=== PATIENT | male | born 1975 | race African-American/Black ===

== ENCOUNTER 2019-09-17 18:40 | Emergency (ER) | payer SELFPAY ==
--- NOTE | 2019-09-17 18:54 | ER Document Report ---
ED Medical Screen (RME) - General Chief Complaint: Altered Mental Status Stated Complaint: POSSIBLE STROKE Time Seen by Provider: 09/17/19 18:51 Mode of Arrival: Wheelchair Information source: Patient Notes: 44-year-old male presented to ED for complaint of forgetfulness unsteady on his feet and "discombobulated ". He does know who he is and where he is. He is able to tell me the date. He does have equal facial movement. He does not have any facial droop. He has no palmar drift. He has equal strength both arms both legs. He is able to answer questions appropriately. He is able to stick his tongue out open his mouth follow instructions. He is alert and oriented at this time. His states he has been forgetful all day. He states he got up and felt lightheaded and fell once earlier today. He states he does smoke about a pack and a half of cigarettes a day drinks about once a week and uses marijuana. Last time he used marijuana was this morning. After performing a Medical Screening Examination, I spoke with the patient at length in regards to leaving the hospital against medical advice. I do not believe the patient should leave but the patient is alert oriented x4, understands the risks and benefits of staying and leaving including disability and . Pt understands that he can return at any time for further care and is more than welcome to do so. Pt verbalizes this understanding. Physical Exam - Vital signs Vitals: Temp Pulse Resp BP Pulse Ox 97.9 F 79 20 148/85 H 94 09/17/19 18:45 09/17/19 18:45 09/17/19 18:45 09/17/19 18:45 09/17/19 18:45 Course - Vital Signs Vital signs: Temp Pulse Resp BP Pulse Ox 97.9 F 79 20 148/85 H 94 09/17/19 18:45 09/17/19 18:45 09/17/19 18:45 09/17/19 18:45 09/17/19 18:45
--- NOTE | 2019-09-17 19:28 | RADIOLOGY REPORT (SQ) ---
EXAM DESCRIPTION: CT HEAD WITHOUT IMAGES COMPLETED DATE/TIME: 09/17/2019 6:10 pm REASON FOR STUDY: altered mental status possible tia COMPARISON: None. TECHNIQUE: Axial images acquired through the brain without intravenous contrast. Images reviewed wi th bone, brain and subdural windows. Additional sagittal and coronal reconstructions were generated. Images stored on PACS. All CT scanners at this facility use dose modulation, iterative reconstruction, and/or weight based d osing when appropriate to reduce radiation dose to as low as reasonably achievable (ALARA). [facility]: Dose Right [facility]: CareDose [facility]: Dose Right [facility]: Teradose 4D [facility]: Smart AudioCompass RADIATION DOSE: CT Rad equipment meets quality standard of care and radiation dose reduction techniq ues were employed. CTDIvol: 53.2 mGy. DLP: 964 mGy-cm. mGy. LIMITATIONS: None. FINDINGS: VENTRICLES: Normal size and contour. CEREBRUM: No masses. No hemorrhage. No midline shift. No evidence for acute infarction. Normal gra y/white matter differentiation. No areas of low density in the white matter. CEREBELLUM: No masses. No hemorrhage. No alteration of density. No evidence for acute infarction. EXTRAAXIAL SPACES: No fluid collections. No masses. ORBITS AND GLOBE: No intra- or extraconal masses. Normal contour of globe without masses. CALVARIUM: No fracture. PARANASAL SINUSES: No fluid or mucosal thickening. SOFT TISSUES: No mass or hematoma. OTHER: No other significant finding. IMPRESSION: No acute intracranial hemorrhage, mass, or evidence of acute territorial infarct. EVIDENCE OF ACUTE STROKE: NO. COMMENT: Quality ID # [id number]: Final reports with documentation of one or more dose reduction techniques (e.g., Automated exposure control, adjustment of the mA and/or kV according to patient size, use of iterative reconstruction technique) TECHNICAL DOCUMENTATION: JOB ID: [id number] 2010 [employer]- All Rights Reserved Reading location - IP/workstation name: [email or web address]
[2019-09-17 20:10] LABS: HEMATOCRIT 42.3 % (37.9-51.0); HEMOGLOBIN 14.2 g/dL (13.5-17.0); MEAN CORPUSCULAR HGB CONC 33.7 g/dL (32.0-36.0); MEAN CORPUSCULAR VOLUME 83 fl (80-97); PLATELET COUNT 197 10^3/uL (150-450); RED BLOOD COUNT 5.08 10^6/uL (4.35-5.55); RED CELL DISTRIBUTION WIDTH 14.5 % (11.5-14.0); WHITE BLOOD COUNT 5.1 10^3/uL (4.0-10.5)
[2019-09-17 20:14] LABS: APPEARANCE,URINE SLIGHTLY-CLOUDY; BILIRUBIN,URINE NEGATIVE (NEGATIVE); COLOR,URINE YELLOW; GLUCOSE, URINE NEGATIVE (NEGATIVE); KETONES,URINE NEGATIVE (NEGATIVE); PROTEIN,URINE NEGATIVE (NEGATIVE); URINE SPECIFIC GRAVITY 1.025
[2019-09-17 20:20] LABS: ALKALINE PHOSPHATASE 53 U/L (38-126); ANION GAP 7 (5-19); ASPARTATE AMINO TRANSFERASE 34 U/L (17-59); BILIRUBIN,DIRECT 0.2 mg/dL (0.0-0.4); BILIRUBIN,TOTAL 0.2 mg/dL (0.2-1.3); BLOOD UREA NITROGEN 19 mg/dL (7-20); CALCIUM 9.3 mg/dL (8.4-10.2); CARBON DIOXIDE 25 mmol/L (22-30); CHLORIDE 108 mmol/L (98-107); GLUCOSE 98 mg/dL (75-110); POTASSIUM 4.2 mmol/L (3.6-5.0); TOTAL PROTEIN 7.2 g/dL (6.3-8.2)
[2019-09-17 20:21] LABS: ALCOHOL < 10 mg/dL (NONE DETECTED)
[2019-09-17 20:26] LABS: URINE AMPHETAMINES SCREEN NEGATIVE; URINE BARBITURATES SCREEN NEGATIVE; URINE BENZODIAZEPINES SCREEN NEGATIVE; URINE COCAINE SCREEN NEGATIVE; URINE METHADONE SCREEN NEGATIVE; URINE PHENCYCLIDINE SCREEN NEGATIVE
[2019-09-17 20:27] LABS: URINE MARIJUANA (THC) SCREEN UNCONFIRMED POSITIVE
[2019-09-17 20:30] LABS: ABSOLUTE LYMPHOCYTES# (MANUAL) 2.1 10^3/uL (0.5-4.7); ABSOLUTE MONOCYTES # (MANUAL) 0.2 10^3/uL (0.1-1.4); BASOPHILS % (MANUAL) 1 % (0-2); EOSINOPHILS % (MANUAL) 6 % (0-6); LYMPHOCYTES % (MANUAL) 42 % (13-45); MONOCYTES % (MANUAL) 4 % (3-13); SEGMENTED NEUTROPHILS % (MAN) 47 % (42-78); TOTAL CELLS COUNTED 100
[2019-09-17 20:31] LABS: PLATELET COMMENT ADEQUATE
--- NOTE | 2019-09-17 21:25 | ER Document Report ---
ED General - General Chief Complaint: Altered Mental Status Stated Complaint: POSSIBLE STROKE Time Seen by Provider: 09/17/19 18:51 Mode of Arrival: Wheelchair Notes: 44-year-old male presents emergency department complaining that he woke up around 5 PM this afternoon from taking a nap and felt disoriented, states that he stumbled for a little bit and had difficulty talking. States that he could not get any words out, states he cannot make any sounds whatsoever. States that he sat down and after 30 minutes felt completely better. Denies feeling like the world was spinning around him, denies weakness on one side of his body or the other. Does not report a gradual improvement, reports more of a sudden improvement. - Related Data Allergies/Adverse Reactions: No Known Allergies Allergy (Unverified 09/17/19 18:56) Home Medications: denies Past Medical History - General Information source: Patient - Social History Smoking Status: Current Every Day Smoker Chew tobacco use (# tins/day): No Frequency of alcohol use: Social Drug Abuse: Marijuana Family History: CVA - Mother, father, sister, brother. No ages given. Patient has suicidal ideation: No Patient has homicidal ideation: No - Medical History Medical History: Negative - Denies past medical history, also states he has not seen a doctor in over 10 years. Review of Systems - Review of Systems Constitutional: No symptoms reported EENT: No symptoms reported Cardiovascular: No symptoms reported Neurological/Psychological: See HPI -: Yes All other systems reviewed and negative Physical Exam - Vital signs Vitals: Temp Pulse Resp BP Pulse Ox 97.9 F 79 20 148/85 H 94 09/17/19 18:45 09/17/19 18:45 09/17/19 18:45 09/17/19 18:45 09/17/19 18:45 Interpretation: Hypertensive - Notes Notes: GENERAL: Alert, interacts well. No acute distress. HEAD: Normocephalic, atraumatic EYES: Pupils equal, round and reactive to light, extraocular movements intact. ENT: Oral mucosa moist, tongue midline. NECK: Full range of motion, supple, trachea midline. LUNGS: Clear to auscultation bilaterally, no wheezes, rales or rhonchi, no respiratory distress. HEART: Regular rate and rhythm, no murmurs, gallops, rubs. ABDOMEN: Soft, nontender, nondistended, bowel sounds present in all 4 quadrants. EXTREMITIES: Moves all 4 extremities spontaneously, no edema, radial and dorsalis pedis pulses 2/4 bilaterally. No cyanosis. NEUROLOGICAL: Alert and oriented x3, normal speech, cranial nerves II through XII grossly intact, biceps and patellar DTRs 2+ bilaterally. Didlzs-[id number] and doqg-ra-[id number] testing intact. 5 out of 5 muscle strength in all 4 extremities. No difficulty with ambulation. PSYCH: Normal mood, normal affect. SKIN: Warm, Dry, normal turgor, no rashes or lesions noted. Course - Re-evaluation Re-evalutation: 09/17/19 21:26 CBC unremarkable, CMP unremarkable, troponin negative, urinalysis unremarkable, urine drug screen confirms marijuana. CT scan of the head is negative. EKG s hows sinus bradycardia at a rate of 58, normal axis, normal intervals, no ST segment elevations or depressions, no T wave inversions, LVH per my interpretation. 09/17/19 21:27 This transient disorientation does not fit with any known stroke syndromes. No indication for work-up for TIA. Patient should have been able to make some sort of sounds when he was trying to make them even if they did not make any sense. Patient will be discharged to home. - Vital Signs Vital signs: Temp Pulse Resp BP Pulse Ox 98.1 F 65 17 145/84 H 99 09/17/19 20:02 09/17/19 20:26 09/17/19 20:27 09/17/19 20:27 09/17/19 20:30 - Laboratory Result Diagrams: 09/17/19 19:38 09/17/19 19:38 Laboratory results interpreted by me: 09/17/19 09/17/19 09/17/19 19:38 19:38 19:38 RDW 14.5 H Chloride 108 H Urine Urobilinogen 2.0 H Discharge - Discharge Clinical Impression: Transient disorientation Hypertension Qualifiers: Hypertension type: essential hypertension Qualified Code(s): I10 - Essential (primary) hypertension Condition: Stable Disposition: HOME, SELF-CARE Additional Instructions: Today I did not find any signs of a stroke. Your blood work was normal. Your symptoms were not consistent with a stroke or a TIA (mini stroke). We did find that your blood pressure was elevated today. It is very important that you follow-up with a primary care physician to have this rechecked. If your blood pressure is elevated on 3 separate occasions you will need to be started on medication. This medication can help to prevent strokes, heart attacks and kidney failure as well as blindness and erectile dysfunction all of which can be caused by high blood pressure that goes untreated. Try to maintain a regular sleep schedule, try to go to sleep at the same time every night and wake up at the same time every morning. Referrals: ARIELLA YING MD [ACTIVE STAFF] - Follow up as needed
[2019-09-17 21:46] VITALS: BP 146/103
--- NOTE | 2019-09-18 09:30 | EKG REPORT ---
SEVERITY:- BORDERLINE ECG - SINUS RHYTHM BORDERLINE INFERIOR Q WAVES : Confirmed by: Cahrla Champion 18-Sep-2019 09:29:58
== END 2019-09-17 21:47 | disposition home or self-care (01) ==
LOC: ER 18:40
DX: R41.0 Disorientation, unspecified (principal); I10 Essential (primary) hypertension; R29.818 Other symptoms and signs involving the nervous system; R00.1 Bradycardia, unspecified; F17.200 Nicotine dependence, unspecified, uncomplicated; F12.10 Cannabis abuse, uncomplicated; Z82.3 Family history of stroke
CPT/HCPCS: 36415; 70450; 80053; 80307; 81001; 82962; 83735; 84484; 85025; 93005; 93010; 99285

== ENCOUNTER 2019-12-30 19:25 | Observation (INO) | payer SELFPAY ==
--- NOTE | 2019-12-30 19:35 | ER Document Report ---
ED Medical Screen (RME) - General Chief Complaint: S/S of Possible Stroke Stated Complaint: POSSIBLE STROKE SYMPTOMS/CANT SPEAK,CANT STAND Time Seen by Provider: 12/30/19 19:33 Mode of Arrival: Wheelchair Information source: Parent Notes: 44-year-old male presented to ED for stroke alert. He does not know who he is where he is is unable to answer questions. I asked him to open his eyes wide any closed and asked him to open his mouth when he closed it. He does not seem to know who he is aware years. He was not able to answer any questions verbally. According to the family member with him it just started. We will send him straight to CT and have followed up with provider and the emergency room. I have greeted and performed a rapid initial assessment of this patient. A comprehensive ED assessment and evaluation of the patient, analysis of test results and completion of medical decision making process will be conducted by an additional ED providers. - Related Data Allergies/Adverse Reactions: No Known Allergies Allergy (Unverified 09/17/19 18:56) Past Medical History - Social History Frequency of alcohol use: None Drug Abuse: None Physical Exam - Vital signs Vitals: Temp Pulse Resp BP Pulse Ox 97.8 F 80 18 160/84 H 98 12/30/19 19:31 12/30/19 19:31 12/30/19 19:31 12/30/19 19:31 12/30/19 19:31 Course - Vital Signs Vital signs: Temp Pulse Resp BP Pulse Ox 97.8 F 80 18 160/84 H 98 12/30/19 19:31 12/30/19 19:31 12/30/19 19:31 12/30/19 19:31 12/30/19 19:31
--- NOTE | 2019-12-30 20:02 | ER Document Report ---
ED General - General Chief Complaint: S/S of Possible Stroke Stated Complaint: POSSIBLE STROKE SYMPTOMS/CANT SPEAK,CANT STAND Time Seen by Provider: 12/30/19 19:33 Mode of Arrival: Wheelchair Notes: 44-year-old male presents the emergency department under the care of his who states that around 715 this evening he leaned over and patted her hand and had a look on his face that looked very similar to when he had a TIA within the past few months. does not remember exactly when that happened. States that at the time he could not stand on his own, states that when he tried to stand he would fall over, also states that he was unable to speak at that time. States that his symptoms have been improving since he arrived here. Denies receiving TPA, denies recent surgery, denies heart attacks. Denies any injuries today. - Related Data Allergies/Adverse Reactions: No Known Allergies Allergy (Unverified 09/17/19 18:56) Past Medical History - General Information source: Patient, Parent - Social History Smoking Status: Current Every Day Smoker Frequency of alcohol use: None Drug Abuse: None Family History: CVA - Mother, father, sister, brother. No ages given. Patient has homicidal ideation: No Review of Systems - Review of Systems Constitutional: No symptoms reported EENT: No symptoms reported Neurological/Psychological: See HPI -: Yes All other systems reviewed and negative Physical Exam - Vital signs Vitals: Temp Pulse Resp BP Pulse Ox 97.8 F 80 18 160/84 H 98 12/30/19 19:31 12/30/19 19:31 12/30/19 19:31 12/30/19 19:31 12/30/19 19:31 Interpretation: Hypertensive - Notes Notes: GENERAL: Alert, interacts well. Appears somewhat anxious. HEAD: Normocephalic, atraumatic EYES: Pupils equal, round and reactive to light, extraocular movements intact. ENT: Oral mucosa moist, tongue midline. NECK: Full range of motion, supple, trachea midline. LUNGS: Clear to auscultation bilaterally, no wheezes, rales or rhonchi, no respiratory distress. HEART: Regular rate and rhythm, no murmurs, gallops, rubs. ABDOMEN: Soft, nontender, nondistended, bowel sounds present in all 4 quadrants. EXTREMITIES: Moves all 4 extremities spontaneously, no edema, radial and dorsalis pedis pulses 2/4 bilaterally. No cyanosis. NEUROLOGICAL: Alert and oriented x3, normal speech, cranial nerves II through XII grossly intact, biceps and patellar DTRs 2+ bilaterally. PSYCH: Appears somewhat anxious. SKIN: Warm, Dry, normal turgor, no rashes or lesions noted. NIHSS-0 Course - Re-evaluation Re-evalutation: 12/30/19 20:02 At present patient's NIH stroke scale is 0. Initial stroke scale by nursing was approximately 5. Patient appears to be a TIA at this point. Not a candidate for TPA due to complete resolution of symptoms. Discussed with family why he is not a candidate for TPA. 12/30/19 23:58 Chest X-Ray 12/30/19 19:33 IMPRESSION: NO ACUTE RADIOGRAPHIC FINDING IN THE CHEST. Head CT 12/30/19 19:33 IMPRESSION: No acute intracranial findings are seen. Please note that MRI is more sensitive for the evaluation of early infarction, and may be performed if there is high clinical concern. Symptoms have not recurred. Discussed case with Dr. Waite and with patient, patient has a TIA, would benefit from observation in the hospital for evaluation of risk factors and risk reduction. Had an extensive discussion with patient and about risk and benefits of staying versus outpatient work-up. Patient after some discussion agrees to stay. Dr. Waite agrees to place the patient on his service. - Vital Signs Vital signs: Temp Pulse Resp BP Pulse Ox 97.8 F 58 L 16 112/62 100 12/30/19 19:31 12/30/19 21:00 12/30/19 23:16 12/30/19 23:16 12/30/19 23:16 - Laboratory Result Diagrams: 12/30/19 19:58 12/30/19 19:58 Laboratory results interpreted by me: 12/30/19 12/30/19 19:58 19:58 RDW 14.4 H Creatinine 1.27 H Creatine Kinase 953 H - EKG Interpretation by Me Additional EKG results interpreted by me: 12/30/19 22:25 EKG shows sinus rhythm rate of 65, normal axis, normal intervals, no ST segment elevations or depressions, no T wave inversions, rapid R wave progression per my interpretation. Discharge - Discharge Clinical Impression: TIA (transient ischemic attack) Condition: Good Disposition: ADMITTED OBSERVATION Admitting Provider: Mariann (Hospitalist) Unit Admitted: [facility] ED [employer]/Exc Criteria - Date/Time patient last known well: Date/Time: 12/30/2019 19:15 - Date/Time patient arrived in ED: _: 12/30/2019 19:25 - Inclusion Criteria: 1: Patient presented to ED within 3 hours of acute ischemic stroke symptom onset? -: Yes 2: Did baseline CT exclude intracranial hemorrhage and/or other risk factors? -: Yes 3: Is the age of the patient 18 years of age or greater? -: Yes : If any of the above questions are answered "NO" then stop, patient is not a candidate for Alteplase, : If all of the above questions are answered "YES" then continue with Exclusion Criteria. - Exclusion Criteria: 1: Is there evidence of intracranial hemorrhage on baseline CT? -: No 2: Is there suspicion of subarachnoid hemorrhage (even if CT negative)? -: No 3: Is there a history of serious head trauma, recent previous stroke or IA within 3 months? -: No 4: Does the patient have a clinical presentation consistent with IA or post-IA pericarditis? -: No 5: Is there history of intracranial hemorrhage? -: No 6: On repeated measurement is Systolic BP greater than 185mmHg or Diastolic BP greater that 110 mmHg and is aggressive treatment needed to reduce blood pressure to these limits (e.g. constant infusion of an anti-hypertensive)? -: No 7: Did the patient awake with stroke symptoms? -: No 8: Has the patient had a lumbar puncture or an arterial puncture at a non- compressile site within 7 days? -: No 9: With in the last 14 days did the patient have surgery or major trauma? -: No 10: Is the patient or less than 2 weeks? -: No 11: Was there any active bleeding or acute trauma? -: No 12: Does the patient have intracranial neoplasm, arteriovenous malformation or aneurysm? -: No 13: Does the patient have abnormal glucose (less than 50 or greater than 400mg/dl)? Record glucose in Comment. -: No 14: Patient has rapidly improving symptoms at the time Alteplase is to be Administered. -: Yes 15: Does the patient have any risks for bleeding, including but not limited to: a.: Current use of Coumadin with PT greater than 15 seconds or INR greater than 1.7. b.: Current use of Pradaxa (Dabigatran). c.: Heparin administereed within the past 48 hours and PTT elevated. d.: Platelet count less than 100,000/mm. e.: Major surgery or serious trauma within 14 days. f.: Gastrointestinal or gynecological urinary bleeding within 14 days. g.: Myocardial Infarction (IA) within 3 months. -: No : If the answer to any of the above questions is "YES" then stop, the patient is not a candidate for Alteplase. : If the answer to all of the above questions is "NO" then the patient may be eligible for the Administration of Alteplase. : If the patient is noted to have seizure activity at onset of Stroke symptoms; Consult Neurologist for further evaluation. - The patient is: -: Included and is eligible to receive Alteplase. *Initiate bed placement at higher level of care* Reviewed risks & benefits of thrombolytic therapy: I have reviewed the risks and benefits of thrombolytic therapy with the patient and/or his/her family. -: Excluded and not eligible to receive Alteplase for the above exclusions. --: Yes -: Excluded and not eligible to receive Alteplase for other reasons (specify in comments): - Diagnosis of TIA: -: Patient presented with transient symptoms that are now resolved and no other neurologic findings are currently present. List symptoms in comments. -: Yes -: Patient is NOT a candidate for tPA. -: Yes -: ____(put name in comment) has been consulted for admission and continued evaluation of risk factor assessment. Comment: [facility] NIH Stroke Scale - NIH Stroke Scale When completed:: Before Alteplase *: 1. NIH scale should be completed with appropriate accompanying assessment tools. *: 2. The NIH should reflect what the patient is capable of doing and should not be coached by the clinician. 1a. Level of Consciousness: 0=Alert;keenly responsive -: 1=Drowsy -: 2=Obtunded -: 3=Coma/unresponsive or reflex to noxious stimuli. 1a. Responses: 0 1b. Orientation Questions: a. What month is it? -: b. How old are you? -: 0=Answers both questions correctly. -: 1=Answers one question correctly or patient is intubated or has orotracheal trauma. -: 2=Answers neither question correctly. 1b. Responses: 0 1c. Response to commands: a. Open and close eyes? -: b. Professional Development Manager and release hand? -: Credit is given despite weakness. Demonstration of task is permitted. Subst itute command if hands cannot be used. -: 0=Performs both tasks correctly -: 1=Performs one task correctly -: 2=Performs neither task correctly 1c. Responses: 0 2. Gaze: Establish eye contact and instruct patient to "Follow my finger" -: 0=Normal -: 1=Partial gaze palsy. Gaze is abnormal in one or both eyes, but where forced deviation or total gaze paresis is not present. -: 2=Forced deviation or total gaze paresis. 2. Responses: 0 3. Visual Dewey: Sees fingers in all four quadrants. -: 0=No visual loss. -: 1=Partial hemianopsia. -: 2=Complete hemianopsia. -: 3=Bilateral hemianopsia (including Cortical blindness) 3. Responses: 0 4. Facial Movement: Instruct patient to: -: a. Show me your teeth -: b. Raise your eyebrows -: c. Close your eyes -: d. Smile -: 0=Normal symmetrical movement -: 1=Minor paralysis (flattened nasolabial fold, asymmetry on smiling). -: 2=Partial paralysis (total or near total paralysis of lower face). -: 3=Complete paralysis of upper and lower face 4. Responses: 0 5. Motor functions (left arm): Alternate sides and extend each arm with palms down (90 degrees if sitting or 45 degrees for supine). -: 0=No drift;limb holds for full 10 seconds. -: 1=Drift; limb holds but drifts down before full 10 seconds, but does not hit bed. -: 2=Some effort against gravity; limb cannot get to or maintain position. -: 3=No effort against gravity; limb falls. -: 4=No movement. -: UN=Amputation, joint fusion, explain in comments. 5. Responses (left arm): 0 5. Motor Functions (right arm): Alternate sides and extend each arm with palms down (90 degrees if sitting or 45 degrees for supine). -: 0=No drift;limb holds for full 10 seconds. -: 1=Drift; limb holds but drifts down before full 10 seconds, but does not hit bed. -: 2=Some effort against gravity; limb cannot get to or maintain position. -: 3=No effort against gravity; limb falls. -: 4=No movement. -: UN=Amputation, joint fusion, explain in comments. 5. Responses (right arm): 0 6. Motor Functions (left leg): With patient lying supine, alternate sides and extend each leg (30 degrees always while supine). -: 0=No drift, leg holds position for full 5 seconds -: 1=Drift; leg falls before full 5 seconds but does not hit bed. -: 2=Some effort against gravity, leg falls to bed but some effort against gravity. -: 3=No effort against gravity, leg falls to bed immediately. -: 4=No movement. -: UN=Amputation, joint fusion; explain in comments. 6. Responses (left leg): 0 6. Motor Functions (right leg): With patient lying supine, alternate sides and extend each leg (30 degrees always while supine). -: 0=No drift, leg holds position for full 5 seconds -: 1=Drift; leg falls before full 5 seconds but does not hit bed. -: 2=Some effort against gravity, leg falls to bed but some effort against gravity. -: 3=No effort against gravity, leg falls to bed immediately. -: 4=No movement. -: UN=Amputation, joint fusion; explain in comments. 6. Responses (right leg): 0 7. Limb Ataxia: With eyes open instruct patient to: -: a. "Touch your finger to your nose". -: b. "Touch your heel to your hernandez" -: 0=Absent -: 1=Present in one limb. -: 2=Present in two limbs. -: UN=Amputation or joint fusion; explain in comments. 7. Responses: 0 8. Sensory: Test sensation using pinprick or noxious stimuli. Test as many body parts as possible. -: 0=Normal;no sensory loss -: 1=Mile to moderate sensory loss (patient feels pin prick but is less sharp on affected side). -: 2=Severe or total sensory loss. 8. Responses: 0 9. Best Language: Instruct patient to: -: a. "Describe what you see in this picture." -: b. "Name the items in this picture." -: c. "Read these sentences." -: 0=No aphasia, normal -: 1=Mild to moderate aphasia. -: 2=Severe aphasia -: 3=Mute, global aphasia, no usable speech or auditory comprehension. 9. Responses: 0 10. Articulation, Dysarthia: Instruct patient to: -: "Read these words" or "Repeat these words" -: 0=Normal -: 1=Mild to moderate; patient may slur some words but can be understood without difficulty. -: 2=Severe; patients speech so slurred as to be unintelligible in the absence of dysphasia. -: UN=Intubated or other physical barrier, explain in comments. 10. Responses: 0 11. Extinction or inattention: 0=No abnormality -: 1= Visual, tactile, auditory, spatial, or personal inattention or extinction to bilateral simulation in one or the sensory modalities. -: 2=Profound geneva-inattention or geneva-inattention to more than one modality; does not recognize own hand. 11. Responses: 0 Total Score: 0
--- NOTE | 2019-12-30 20:02 | RADIOLOGY REPORT (SQ) ---
EXAM DESCRIPTION: CHEST SINGLE VIEW IMAGES COMPLETED DATE/TIME: 12/30/2019 7:49 pm REASON FOR STUDY: Stroke alert COMPARISON: None. EXAM PARAMETERS: NUMBER OF VIEWS: One view. TECHNIQUE: Single frontal radiographic view of the chest acquired. RADIATION DOSE: NA LIMITATIONS: None. FINDINGS: LUNGS AND PLEURA: No opacities, masses or pneumothorax. No pleural effusion. MEDIASTINUM AND HILAR STRUCTURES: No masses. Contour normal. HEART AND VASCULAR STRUCTURES: Heart normal in size. Normal vasculature. BONES: No acute findings. HARDWARE: None in the chest. OTHER: No other significant finding. IMPRESSION: NO ACUTE RADIOGRAPHIC FINDING IN THE CHEST. TECHNICAL DOCUMENTATION: JOB ID: [id number] 2010 [employer]- All Rights Reserved Reading location - IP/workstation name: [email or web address]
[2019-12-30 20:15] LABS: INTERNATIONAL RATION (INR) 1.03; PROTHROMBIN TIME 13.6 SEC (11.4-15.4)
[2019-12-30 20:16] LABS: PARTIAL THROMBOPLASTIN TIME 29.4 SEC (23.5-35.8)
[2019-12-30 20:21] LABS: ABSOLUTE EOSINOPHILS # (AUTO) 0.2 10^3/uL (0.0-0.6); ABSOLUTE LYMPHOCYTES (AUTO) 2.8 10^3/uL (0.5-4.7); ABSOLUTE MONOCYTES (AUTO) 0.6 10^3/uL (0.1-1.4); BASOPHILS % (AUTO) 0.7 % (0-2); EOSINOPHILS % (AUTO) 3.5 % (0-6); HEMATOCRIT 39.6 % (37.9-51.0); HEMOGLOBIN 13.5 g/dL (13.5-17.0); MEAN CORPUSCULAR HEMOGLOBIN 28.1 pg (27.0-33.4); MEAN CORPUSCULAR VOLUME 83 fl (80-97); MONOCYTES % (AUTO) 8.7 % (3-13); PLATELET COUNT 193 10^3/uL (150-450); RED BLOOD COUNT 4.78 10^6/uL (4.35-5.55); RED CELL DISTRIBUTION WIDTH 14.4 % (11.5-14.0); SEGMENTED NEUTROPHILS % (AUTO) 45.1 % (42-78); TOTAL CELLS COUNTED % (AUTO) 100 %; WHITE BLOOD COUNT 6.7 10^3/uL (4.0-10.5)
--- NOTE | 2019-12-30 20:33 | RADIOLOGY REPORT (SQ) ---
CT HEAD WITHOUT IV CONTRAST HISTORY: Stroke alert. COMPARISON: 09/17/2019 TECHNIQUE: CT scan of the brain was performed without IV contrast. This exam was performed according to our departmental dose-optimization program, which includes automated exposure control, adjustment of the mA and/or kV according to patient size and/or use of iterative reconstruction technique. FINDINGS: The ventricles, cisterns, and sulci are age-appropriate. No evidence of acute infarction, intracranial hemorrhage, extra-axial fluid collection, or midline shift. No air-fluid levels are seen in the paranasal sinuses to suggest acute sinusitis. No depressed skull fracture. IMPRESSION: No acute intracranial findings are seen. Please note that MRI is more sensitive for the evaluation of early infarction, and may be performed if there is high clinical concern.
[2019-12-30 20:41] LABS: ALBUMIN 4.2 g/dL (3.5-5.0); ALKALINE PHOSPHATASE 44 U/L (38-126); ANION GAP 6 (5-19); ASPARTATE AMINO TRANSFERASE 39 U/L (17-59); BILIRUBIN,TOTAL 0.4 mg/dL (0.2-1.3); BLOOD UREA NITROGEN 13 mg/dL (7-20); CALCIUM 9.4 mg/dL (8.4-10.2); CARBON DIOXIDE 26 mmol/L (22-30); CHLORIDE 106 mmol/L (98-107); CREATINE KINASE 953 U/L (55-170); GLUCOSE 109 mg/dL (75-110); TOTAL PROTEIN 6.9 g/dL (6.3-8.2)
[2019-12-30 20:53] LABS: CREATINE KINASE MB 4.39 ng/mL (<4.55)
[2019-12-30 20:55] LABS: TROPONIN I < 0.012 ng/mL
--- NOTE | 2019-12-30 21:49 | EKG REPORT ---
SEVERITY:- NORMAL ECG - SINUS RHYTHM : Confirmed by: Stephen De Guzman MD 30-Dec-2019 21:48:52
[2019-12-31] MEDS ORDERED: ACETAMINOPHEN 325 MG TABLET PO PRN (00:20)
[2019-12-31] MEDS ORDERED: ATORVASTATIN CALCIUM 40 MG TABLET PO SCH (00:30)
[2019-12-31] MEDS ORDERED: ASPIRIN 81 MG TABLET, CHEWABLE PO SCH (00:30)
--- NOTE | 2019-12-31 00:34 | PDOC H&P ---
History of Present Illness Admission Date/PCP: 12/30/19 23:58 History of Present Illness: IRINA MUÑOZ is a 44 year old male with no known past medical history who initially came to this hospital back in September with symptoms of a TIA and was sent home but did not follow-up with an physician as an outpatient. He takes no home medications and does not have a doctor. He had an episode today that lasted for about 45 minutes. During the episode, he experienced trouble getting his words out and there was some report of some left-sided deficits but the patient denies this. He is asymptomatic now. His blood pressure when he came in initially had a systolic in the 160s but now he is down to the 110s without intervention. He smokes half a pack of cigarettes a day. He said that his m other had a stroke in her 50s and his father had a stroke in his 40s. Social History Smoking Status: Current Every Day Smoker Family History Family History: CAD, CVA - Mother, father, sister, brother. No ages given., H ypertension Parental Family History Reviewed: Yes Children Family History Reviewed: NA Sibling(s) Family History Reviewed.: Yes Medication/Allergy Home Medications: No Home Medications 09/17/19 Allergies/Adverse Reactions: No Known Allergies Allergy (Unverified 09/17/19 18:56) Review of Systems All systems: reviewed and no additional remarkable complaints except as stated - All systems were reviewed and were negative except as noted in the HPI Physical Exam Vital Signs: Temp Pulse Resp BP Pulse Ox 97.8 F 58 L 27 H 116/71 100 12/30/19 19:31 12/31/19 00:00 12/31/19 00:06 12/31/19 00:06 12/31/19 00:06 Intake & Output 12/29/19 12/30/19 12/31/19 06:59 06:59 06:59 Weight 111.13 kg General appearance: PRESENT: no acute distress, cooperative, disheveled, obese Head exam: PRESENT: atraumatic, normocephalic Eye exam: PRESENT: EOMI, PERRLA. ABSENT: conjunctival injection, nystagmus, scleral icterus Ear exam: PRESENT: normal external ear exam Mouth exam: PRESENT: moist, neck supple Throat exam: ABSENT: post pharyngeal erythema Neck exam: PRESENT: full ROM. ABSENT: carotid bruit, JVD, lymphadenopathy, meningismus, tenderness, thyromegaly Respiratory exam: PRESENT: clear to auscultation shade, symmetrical, unlabored. ABSENT: accessory muscle use, chest wall tenderness, crackles, prolonged expi ratory phas, rhonchi, tachypnea, wheezes Cardiovascular exam: PRESENT: RRR, +S1, +S2 Pulses: PRESENT: normal carotid pulses Vascular exam: PRESENT: normal capillary refill GI/Abdominal exam: PRESENT: normal bowel sounds, soft. ABSENT: distended, guarding, rebound, tenderness Extremities exam: ABSENT: clubbing, pedal edema Musculoskeletal exam: ABSENT: deformity Neurological exam: PRESENT: alert, awake, oriented to person, oriented to place, oriented to time, oriented to situation, CN II-XII grossly intact. ABSENT: mot or sensory deficit Psychiatric exam: PRESENT: flat affect Skin exam: PRESENT: dry, warm Results Laboratory Results: 12/30/19 19:58 12/30/19 19:58 12/30/19 12/30/19 19:58 19:58 WBC 6.7 RBC 4.78 Hgb 13.5 Hct 39.6 MCV 83 MCH 28.1 MCHC 34.0 RDW 14.4 H Plt Count 193 Seg Neutrophils % 45.1 Sodium 138.2 Potassium 4.0 Chloride 106 Carbon Dioxide 26 Anion Gap 6 BUN 13 Creatinine 1.27 H Est GFR ( Amer) > 60 Glucose 109 Calcium 9.4 Total Bilirubin 0.4 AST 39 Alkaline Phosphatase 44 Total Protein 6.9 Albumin 4.2 12/30/19 12/30/19 19:58 19:58 Creatine Kinase 953 H CK-MB (CK-2) 4.39 Troponin I < 0.012 Impressions: Chest X-Ray 12/30/19 19:33 IMPRESSION: NO ACUTE RADIOGRAPHIC FINDING IN THE CHEST. Head CT 12/30/19 19:33 IMPRESSION: No acute intracranial findings are seen. Please note that MRI is more sensitive for the evaluation of early infarction, and may be performed if there is high clinical concern. Assessment and Plan - Diagnosis (1) TIA (transient ischemic attack) Is this a current diagnosis for this admission?: Yes Plan: Have ordered an MRI and a carotid Doppler. We will check a lipid panel in the morning. Have encouraged him to quit smoking. Start a statin and an aspirin. He does not have any deficits now so I do not think he needs an evaluation from PT, OT, or speech therapy, but if he begins to show any deficits we can of course have them evaluate him. (2) Obesity (BMI 30.0-34.9) Is this a current diagnosis for this admission?: Yes Plan: Strongly encourage lifestyle and dietary modification (3) Current every day smoker Is this a current diagnosis for this admission?: Yes Plan: Strongly encourage cessation, especially in light of the fact that he has a very strong family history of stroke and that quitting smoking now would greatly reduce not only his risk of stroke but also multiple other serious adverse health events. - Time Time Spent with patient: 35 or more minutes
[2019-12-31 04:22] VITALS: BP 133/58
[2019-12-31] MEDS ORDERED: HEPARIN SOD (PORCINE) 5,000 UNIT/ML 1 ML VIAL SUBCUT SCH (06:00)
[2019-12-31 09:35] LABS: ANION GAP 6 (5-19); BLOOD UREA NITROGEN 15 mg/dL (7-20); CALCIUM 9.3 mg/dL (8.4-10.2); CARBON DIOXIDE 29 mmol/L (22-30); CHLORIDE 104 mmol/L (98-107); CHOLESTEROL 196.38 mg/dL (0-200); GLUCOSE 99 mg/dL (75-110); POTASSIUM 4.5 mmol/L (3.6-5.0); TRIGLYCERIDES 86 mg/dL (<150)
[2019-12-31 09:46] LABS: DIRECT LDL 141 mg/dL (<100)
--- NOTE | 2019-12-31 12:29 | PDOC PROGRESS REPORT ---
Subjective Progress Note for:: 12/31/19 Subjective:: I saw patient this morning. Patient states that his weakness in his left side is pretty much resolved. Also states that he is word finding/aphasia resolved. Stated that he had a TIA before but was discharged without any medications. Explained plan to patient and patient seemed willing to stay to go ahead with plan. Reason For Visit: TIA (TRANSIENT ISCHEMIC ATTACK) Physical Exam Vital Signs: Temp Pulse Resp BP Pulse Ox 97.6 F 82 16 133/58 H 100 12/31/19 03:55 12/31/19 07:04 12/31/19 07:04 12/31/19 07:04 12/31/19 07:04 Intake & Output 12/30/19 12/31/19 01/01/20 06:59 06:59 06:59 Intake Total 0 Output Total 0 Balance 0 Weight 104.3 kg General appearance: PRESENT: no acute distress, cooperative Respiratory exam: PRESENT: symmetrical, unlabored. ABSENT: tachypnea, wheezes Cardiovascular exam: PRESENT: RRR, +S1, +S2. ABSENT: tachycardia GI/Abdominal exam: PRESENT: soft. ABSENT: rebound, rigid, tenderness Neurological exam: PRESENT: alert, awake, oriented to person, oriented to place, oriented to time, oriented to situation, CN II-XII grossly intact. ABSENT: ataxia - Normal [id number] test, normal rapid alternating hand movements bilaterally, motor sensory deficit, aphasic Psychiatric exam: ABSENT: agitated, anxious Results Laboratory Results: 12/30/19 19:58 12/31/19 08:44 12/30/19 12/30/19 12/31/19 19:58 19:58 08:44 WBC 6.7 RBC 4.78 Hgb 13.5 Hct 39.6 MCV 83 MCH 28.1 MCHC 34.0 RDW 14.4 H Plt Count 193 Seg Neutrophils % 45.1 Sodium 138.2 138.6 Potassium 4.0 4.5 Chloride 106 104 Carbon Dioxide 26 29 Anion Gap 6 6 BUN 13 15 Creatinine 1.27 H 1.09 Est GFR ( Amer) > 60 > 60 Glucose 109 99 Calcium 9.4 9.3 Total Bilirubin 0.4 AST 39 Alkaline Phosphatase 44 Total Protein 6.9 Albumin 4.2 Triglycerides 86 Cholesterol 196.38 LDL Cholesterol Direct 141 H VLDL Cholesterol 17.0 HDL Cholesterol 37 L 12/30/19 12/30/19 19:58 19:58 Creatine Kinase 953 H CK-MB (CK-2) 4.39 Troponin I < 0.012 Impressions: Chest X-Ray 12/30/19 19:33 IMPRESSION: NO ACUTE RADIOGRAPHIC FINDING IN THE CHEST. Head CT 12/30/19 19:33 IMPRESSION: No acute intracranial findings are seen. Please note that MRI is more sensitive for the evaluation of early infarction, and may be performed if there is high clinical concern. Assessment and Plan - Diagnosis (1) TIA (transient ischemic attack) Is this a current diagnosis for this admission?: Yes Plan: MRI and carotid Doppler to be done this morning. I encouraged patient that he would need to get an echocardiogram done as well outpatient. Reviewed telemetry which shows no evidence of arrhythmias but does show nocturnal sinus bradycardia. No A. fib noted. All rhythms strips on tele had discernible P waves. On aspirin and statin. Will monitor blood pressure. Check lipid panel and hemoglobin A1c for risk stratification. His word finding/aphasia and left-sided deficits seem to have resolved. Comprehensive neurological exam was essentially unremarkable. (2) Sinus bradycardia Is this a current diagnosis for this admission?: Yes Plan: This seems to only occur while patient is sleeping. I suspect he may have underlying obstructive sleep apnea. Will need to have a sleep study done as outpatient. (3) Current every day smoker Is this a current diagnosis for this admission?: Yes Plan: Strongly encourage cessation, especially in light of the fact that he has a very strong family history of stroke and that quitting smoking now would greatly reduce not only his risk of stroke but also multiple other serious adverse health events. (4) Obesity (BMI 30.0-34.9) Is this a current diagnosis for this admission?: Yes Plan: Strongly encourage lifestyle and dietary modification - Time Time Spent with patient: 15-24 minutes
--- NOTE | 2019-12-31 12:31 | Left Against Medical Advice ---
Against Medical Advice Admission Date/Time: 12/30/19 23:58 Primary Care Provider: Date of Patient Emigration: 12/31/19 - Diagnosis: (1) TIA (transient ischemic attack) Is this a current diagnosis for this admission?: Yes (2) Sinus bradycardia Is this a current diagnosis for this admission?: Yes (3) Current every day smoker Is this a current diagnosis for this admission?: Yes (4) Obesity (BMI 30.0-34.9) Is this a current diagnosis for this admission?: Yes - Summary: Summary: Please see Admission and Progress Notes as well. IRINA MUÑOZ is a 44 M, who LEFT AGAINST MEDICAL ADVICE. The Patient was admitted on 12/30/19 23:58. Interestingly during my encounter this morning, patient did not raise any issues of wanting to leave AMA. However I was informed this early afternoon by patient's nurse that patient suddenly got up and left AMA. Informed that patient signed the AMA document. Notified after patient had eloped.
--- NOTE | 2019-12-31 14:09 | RADIOLOGY REPORT (SQ) ---
EXAM DESCRIPTION: MRI HEAD WITHOUT IMAGES COMPLETED DATE/TIME: 12/31/2019 9:24 am REASON FOR STUDY: tia COMPARISON: CT head 12/30/2019 TECHNIQUE: Multiplanar imaging includes non-contrasted T1, T2, FLAIR, and diffusion with ADC map seq uences. Images stored on PACS. LIMITATIONS: None. FINDINGS: ANATOMY: No anomalies. Normal vascular flow voids. Pituitary fossa normal. CSF SPACES: Normal in size and contour. No hemorrhage. CEREBRUM: Sulci and gyri normal in size and contour. There are few tiny scattered areas of increased white matter signal on FLAIR imaging. No evidence of hemorrhage, mass, or extraaxial fluid collecti on. POSTERIOR FOSSA: No signal alteration. No hemorrhage. No edema, masses or mass effect. Internal charlene tory canals, cerebello-pontine angles, mastoids normal. DIFFUSION IMAGING: Negative for acute or sub-acute infarction. ORBITS: No masses. Globes normal. PARANASAL SINUSES: No fluid levels. Mucosa normal. OTHER: No other significant finding. IMPRESSION: Minimal chronic microvascular ischemic changes with no acute intracranial imaging findin gs. EVIDENCE OF ACUTE STROKE: NO. TECHNICAL DOCUMENTATION: JOB ID: [id number] 2010 [employer]- All Rights Reserved Reading location - IP/workstation name: [email or web address]
--- NOTE | 2019-12-31 15:16 | RADIOLOGY REPORT (SQ) ---
EXAM DESCRIPTION: CAROTID DOPPLER IMAGES COMPLETED DATE/TIME: 12/31/2019 2:29 pm REASON FOR STUDY: tia COMPARISON: None. TECHNIQUE: Grayscale ultrasound, Doppler velocity and spectra, and color Doppler images acquired of the extra-cranial carotid and vertebral arteries. Images stored on PACS. LIMITATIONS: None. FINDINGS: RIGHT CAROTID CCA Velocities: Within normal limits. ICA Velocities Peak systolic 87 cm/s. End diastolic 39 cm/s. Proximal ICA/CCA peak systolic ratio 1.0. Spectra normal. No significant plaque. LEFT CAROTID CCA Velocities: Within normal limits. ICA Velocities Peak systolic 79 cm/s. End diastolic 37 cm/s. Proximal ICA/CCA peak systolic ratio 0.6. Spectra normal. No significant plaque. VERTEBRAL ARTERIES: Antegrade flow. Normal waveforms. SUBCLAVIAN ARTERIES: No finding. OTHER: There are some high velocities at the origins of the common carotid arteries and in the distal left common carotid artery. IMPRESSION: No hemodynamically significant stenoses in either internal carotid artery. There are so me high velocity readings at the origins of the common carotid arteries and in the distal left common carotid. COMMENT: Quality ID #195: Velocity criteria are extrapolated from the diameter data as defined by t he Society of Radiologists in Ultrasound Consensus Conference. Radiology 2003: 229; 340-346. TECHNICAL DOCUMENTATION: JOB ID: [id number] 2010 [employer]- All Rights Reserved Reading location - IP/workstation name: [email or web address]
== END 2019-12-31 11:54 | disposition left against medical advice (07) ==
LOC: ER 19:25 → EH 23:58 → 3W 12-31 01:11
PROVIDERS: ADMIT Family Medicine; ATTEND Internal Medicine
DX: G45.9 Transient cerebral ischemic attack, unspecified (principal); R00.1 Bradycardia, unspecified; F17.210 Nicotine dependence, cigarettes, uncomplicated; E66.9 Obesity, unspecified; R29.700 NIHSS score 0; Z68.34 Body mass index [BMI] 34.0-34.9, adult; Z82.3 Family history of stroke; Z82.49 Family history of ischemic heart disease and other diseases of the circulatory system
CPT/HCPCS: 93005; 99285; 36415 ×2; 82553; 82962; 82550; 85025; 85610; 85730; 80048; 80053; 84484; 83036; 80061; 93880; 70551; 71045; 70450; 93010; J1644; J3490

== ENCOUNTER 2020-01-03 08:58 | Emergency (ER) | payer SELFPAY ==
--- NOTE | 2020-01-03 09:44 | RADIOLOGY REPORT (SQ) ---
EXAM DESCRIPTION: CHEST SINGLE VIEW IMAGES COMPLETED DATE/TIME: 01/03/2020 9:20 am REASON FOR STUDY: STROKE COMPARISON: 12/30/2019 EXAM PARAMETERS: NUMBER OF VIEWS: One view. TECHNIQUE: Single frontal radiographic view of the chest acquired. RADIATION DOSE: NA LIMITATIONS: None. FINDINGS: LUNGS AND PLEURA: No opacities, masses or pneumothorax. No pleural effusion. MEDIASTINUM AND HILAR STRUCTURES: No masses. Contour normal. HEART AND VASCULAR STRUCTURES: Heart normal in size. Normal vasculature. BONES: No acute findings. HARDWARE: None in the chest. OTHER: No other significant finding. IMPRESSION: NO ACUTE RADIOGRAPHIC FINDING IN THE CHEST. TECHNICAL DOCUMENTATION: JOB ID: [id number] 2010 [employer]- All Rights Reserved Reading location - IP/workstation name: [email or web address]
--- NOTE | 2020-01-03 09:44 | RADIOLOGY REPORT (SQ) ---
EXAM DESCRIPTION: CT HEAD WITHOUT IMAGES COMPLETED DATE/TIME: 01/03/2020 9:22 am REASON FOR STUDY: S/S STROKE COMPARISON: 09/17/2019, 12/30/2019 TECHNIQUE: Axial images acquired through the brain without intravenous contrast. Images reviewed wi th bone, brain and subdural windows. Additional sagittal and coronal reconstructions were generated. Images stored on PACS. All CT scanners at this facility use dose modulation, iterative reconstruction, and/or weight based d osing when appropriate to reduce radiation dose to as low as reasonably achievable (ALARA). [facility]: Dose Right [facility]: CareDose [facility]: Dose Right [facility]: Teradose 4D [facility]: [employer] RADIATION DOSE: CT Rad equipment meets quality standard of care and radiation dose reduction techniq ues were employed. CTDIvol: 53.2 mGy. DLP: 1097 mGy-cm. mGy. LIMITATIONS: None. FINDINGS: VENTRICLES: Normal size and contour. CEREBRUM: No masses. No hemorrhage. No midline shift. No evidence for acute infarction. Normal gra y/white matter differentiation. No areas of low density in the white matter. CEREBELLUM: No masses. No hemorrhage. No alteration of density. No evidence for acute infarction. EXTRAAXIAL SPACES: No fluid collections. No masses. ORBITS AND GLOBE: No intra- or extraconal masses. Normal contour of globe without masses. CALVARIUM: No fracture. PARANASAL SINUSES: No fluid or mucosal thickening. SOFT TISSUES: No mass or hematoma. OTHER: No other significant finding. IMPRESSION: NORMAL BRAIN CT WITHOUT CONTRAST. EVIDENCE OF ACUTE STROKE: NO. COMMENT: Pertinent positive or negative findings of the imaging study reported as a CRITICAL EXAM shawna PIZARRO MD at09:37 on 01/03/2020. Category of Critical Exam: Stroke alert Quality ID # [id number]: Final reports with documentation of one or more dose reduction techniques (e.g., Au tomated exposure control, adjustment of the mA and/or kV according to patient size, use of iterative reconstruction technique) TECHNICAL DOCUMENTATION: JOB ID: [id number] 2010 [employer]- All Rights Reserved Reading location - IP/workstation name: [email or web address]
[2020-01-03 09:52] LABS: ABSOLUTE EOSINOPHILS # (AUTO) 0.1 10^3/uL (0.0-0.6); ABSOLUTE LYMPHOCYTES (AUTO) 1.3 10^3/uL (0.5-4.7); ABSOLUTE MONOCYTES (AUTO) 0.4 10^3/uL (0.1-1.4); ABSOLUTE NEUT (AUTO) 3.6 10^3/uL (1.7-8.2); BASOPHILS % (AUTO) 0.8 % (0-2); EOSINOPHILS % (AUTO) 1.6 % (0-6); HEMATOCRIT 41.8 % (37.9-51.0); LYMPHOCYTES % (AUTO) 24.1 % (13-45); MEAN CORPUSCULAR HEMOGLOBIN 28.1 pg (27.0-33.4); MEAN CORPUSCULAR HGB CONC 33.5 g/dL (32.0-36.0); MEAN CORPUSCULAR VOLUME 84 fl (80-97); MONOCYTES % (AUTO) 7.4 % (3-13); PLATELET COUNT 199 10^3/uL (150-450); RED BLOOD COUNT 4.98 10^6/uL (4.35-5.55); RED CELL DISTRIBUTION WIDTH 14.4 % (11.5-14.0); SEGMENTED NEUTROPHILS % (AUTO) 66.1 % (42-78); TOTAL CELLS COUNTED % (AUTO) 100 %; WHITE BLOOD COUNT 5.5 10^3/uL (4.0-10.5)
[2020-01-03 10:10] LABS: ALBUMIN 4.3 g/dL (3.5-5.0); ALKALINE PHOSPHATASE 47 U/L (38-126); ANION GAP 5 (5-19); ASPARTATE AMINO TRANSFERASE 32 U/L (17-59); BILIRUBIN,TOTAL 0.3 mg/dL (0.2-1.3); BLOOD UREA NITROGEN 15 mg/dL (7-20); CALCIUM 9.4 mg/dL (8.4-10.2); CARBON DIOXIDE 26 mmol/L (22-30); CHLORIDE 108 mmol/L (98-107); CREATINE KINASE 642 U/L (55-170); GLUCOSE 99 mg/dL (75-110); POTASSIUM 4.2 mmol/L (3.6-5.0); TOTAL PROTEIN 7.1 g/dL (6.3-8.2)
--- NOTE | 2020-01-03 10:29 | ER Document Report ---
Entered by SILVIA POZO SCRIBE 01/03/20 0911 Acting as scribe for:MANPREET PIZARRO MD ED Neuro Symptoms/Deficit - General Stated Complaint: POSSIBLE STROKE Time Seen by Provider: 01/03/20 09:06 Mode of Arrival: Wheelchair Information source: Patient Notes: This 44 year old male patient presents to the emergency department today with concerns of stroke-like symptoms. Patient states that about 30 minutes prior to arrival he had a brief episode of confusion and difficulty with word finding. Significant other at bedside states that the patient seemed to be staring off blankly when she tried to talk to him. This patient was admitted to his facility on 12/29 for a TIA work up and shortly after admission signed out AGAINST MEDICAL ADVICE. He states that he signed out AMA because he "did not want to be here". He appears scared today and states that he does want to be here now. The patient is not a TPA candidate. His symptoms have completely resolved at this time. There is no motor, cognitive, or speech deficits. The patient reports that he feels completely back to normal at this time. - Related Data Allergies/Adverse Reactions: No Known Allergies Allergy (Verified 01/03/20 10:19) Past Medical History - General Information source: Patient, [facility] Records - Social History Smoking Status: Current Every Day Smoker Cigarette use (# per day): Yes Frequency of alcohol use: None Drug Abuse: Marijuana Family History: Reviewed & Not Pertinent, CAD, CVA - Mother, father, sister, brother. No ages given., Hypertension Neurological Medical History: Reports: Other - Hx TIAs Surgical Hx: Negative Review of Systems - Review of Systems Constitutional: No symptoms reported EENT: No symptoms reported Cardiovascular: No symptoms reported Respiratory: No symptoms reported Gastrointestinal: No symptoms reported Genitourinary: No symptoms reported Male Genitourinary: No symptoms reported Musculoskeletal: No symptoms reported Skin: No symptoms reported Hematologic/Lymphatic: No symptoms reported Neurological/Psychological: See HPI, Confusion - prior to arrival -: Yes All other systems reviewed and negative Physical Exam - Vital signs Vitals: Temp Pulse Resp BP Pulse Ox 97.9 F 86 18 125/73 99 01/03/20 09:05 01/03/20 09:05 01/03/20 09:05 01/03/20 09:05 01/03/20 09:05 - Notes Notes: Physical Exam: General: Alert, appears well. Nervous twitch with right hand, supinating and pronating right hand but does stop when distracted. Appears to be nervous and states he does want to be at the hospital today. HEENT: Normocephalic. Atraumatic. PERRL. Extraocular movements intact. Oropharynx clear. Neck: Supple. Non-tender. Respiratory: No respiratory distress. Clear and equal breath sounds bilaterally. Cardiovascular: Regular rate and rhythm. Abdominal: Normal Inspection. Non-tender. No distension. Normal Bowel Sounds. Back: No gross abnormalities. Extremities: Moves all four extremities. Upper extremities: Normal inspection. Normal ROM. Lower extremities: Normal inspection. No edema. Normal ROM. Neurological: Normal cognition. AAOx4. Normal speech. Psychological: Normal affect. Normal Mood. Skin: Warm. Dry. Normal color. Course - Re-evaluation Re-evalutation: 01/03/20 11:22 I discussed the case with Dr. Navas. He states that he was going to discharge the patient later in the day when he found the patient had already signed out AMA 3 days ago. He states he was going to discharge the patient home on a baby aspirin and atorvastatin 40 mg daily. The MRI had been completed showing minimal microvascular ischemic changes. The carotid Dopplers had been done showing a high velocity reading at the origins of both carotid arteries and in the distal left carotid artery. There were no hemodynamically significant stenoses. The patient CT scan today is unremarkable, and his symptoms had completely resolved prior to arrival. He will be discharged on a 81 mg aspirin daily, atorvastatin 40 mg nightly, strongly encouraged to stop smoking, follow-up with neurology. - Vital Signs Vital signs: Temp Pulse Resp BP Pulse Ox 97.9 F 86 15 115/60 100 01/03/20 09:05 01/03/20 09:05 01/03/20 10:01 01/03/20 10:01 01/03/20 10:01 - Laboratory Result Diagrams: 01/03/20 09:32 01/03/20 09:32 Laboratory results interpreted by me: 01/03/20 01/03/20 01/03/20 09:32 09:32 10:41 RDW 14.4 H Chloride 108 H Creatine Kinase 642 H Urine Protein 30 H Urine Urobilinogen 2.0 H Urine Ascorbic Acid 40 H - Diagnostic Test Radiology reviewed: Image reviewed, Reports reviewed - CT scan of the head does not show any acute findings. - EKG Interpretation by Me EKG shows normal: Sinus rhythm, [place], Intervals, QRS Complexes, ST-T Waves Rate: Normal - 72 Rhythm: NSR Discharge - Discharge Clinical Impression: TIA (transient ischemic attack), Current every day smoker, Obesity (BMI 30.0- 34.9) Condition: Stable Disposition: HOME, SELF-CARE Additional Instructions: Transient Ischemic Attack You have been diagnosed as having a transient ischemic attack (TIA). This is caused when an artery to the brain has been temporarily blocked. It can result in visual changes, difficulty with speech, and weakness or numbness -- usually limited to one side of the body. TIA symptoms usually resolve within an hour, but a TIA is serious, as it may be a warning sign of an impending stroke. To prevent further episodes, you may be placed on medication to reduce the possibility that your platelets will aggregate and form blood clots in the arteries that supply the brain. Usually, this includes aspirin and sometimes other platelet inhibitors. Further evaluation is often necessary to make an exact diagnosis as to where these blood clots are originating, and if anything else needs to be done to correct the problem. Call the physician or go to the emergency room if episodes occur with increasing frequency. If symptoms occur that don't go away within a few minutes, call 911. Take 1 baby aspirin once daily. You were given a dose here in the emergency room. Start the daily aspirin 81 mg tomorrow. Take the atorvastatin as prescribed at bedtime. Follow-up with a local primary care provider to manage your medications. Follow-up with a local neurologist for further evaluation of these spells that are suspicious for transient ischemic attack. Stop smoking. This is the most critical thing you can do to reduce your chances of having a stroke. RETURN TO THE EMERGENCY ROOM IF ANY NEW OR WORSENING SYMPTOMS. Prescriptions: Atorvastatin Calcium [Lipitor 40 mg Tablet] 40 mg PO QHS #30 tablet I personally performed the services described in the documentation, reviewed and edited the documentation which was dictated to the scribe in my presence, and it accurately records my words and actions.
[2020-01-03] MEDS ORDERED: ATORVASTATIN CALCIUM 40 MG TABLET PO ONE (10:41)
[2020-01-03] MEDS ORDERED: ASPIRIN 81 MG TABLET, CHEWABLE PO ONE (10:41)
[2020-01-03 11:06] LABS: APPEARANCE,URINE SLIGHTLY-CLOUDY; BILIRUBIN,URINE NEGATIVE (NEGATIVE); COLOR,URINE YELLOW; GLUCOSE, URINE NEGATIVE (NEGATIVE); KETONES,URINE NEGATIVE (NEGATIVE); LEUKOCYTE ESTERASE,URINE NEGATIVE (NEGATIVE); NITRITE,URINE NEGATIVE (NEGATIVE); PROTEIN,URINE 30 mg/dL (NEGATIVE); URINE SPECIFIC GRAVITY 1.028
--- NOTE | 2020-01-03 11:53 | EKG REPORT ---
SEVERITY:- NORMAL ECG - SINUS RHYTHM BORDERLINE LVH : Confirmed by: Stephen De Guzman MD 03-Jan-2020 11:52:18
--- NOTE | 2020-01-03 12:04 | ER Document Report ---
ED [employer]te[employer]ase [employer]/Exc Criteria - Inclusion Criteria: 1: Patient presented to ED within 3 hours of acute ischemic stroke symptom onset? -: Yes 2: Did baseline CT exclude intracranial hemorrhage and/or other risk factors? -: Yes 3: Is the age of the patient 18 years of age or greater? -: Yes : If any of the above questions are answered "NO" then stop, patient is not a candidate for Alteplase, : If all of the above questions are answered "YES" then continue with Exclusion Criteria. - Exclusion Criteria: 1: Is there evidence of intracranial hemorrhage on baseline CT? -: No 2: Is there suspicion of subarachnoid hemorrhage (even if CT negative)? -: No 3: Is there a history of serious head trauma, recent previous stroke or DC within 3 months? -: No 4: Does the patient have a clinical presentation consistent with DC or post-DC pericarditis? -: No 5: Is there history of intracranial hemorrhage? -: No 6: On repeated measurement is Systolic BP greater than 185mmHg or Diastolic BP greater that 110 mmHg and is aggressive treatment needed to reduce blood pressure to these limits (e.g. constant infusion of an anti-hypertensive)? -: No 7: Did the patient awake with stroke symptoms? -: No 8: Has the patient had a lumbar puncture or an arterial puncture at a non- compressile site within 7 days? -: No 9: With in the last 14 days did the patient have surgery or major trauma? -: No 10: Is the patient or less than 2 weeks? -: No 11: Was there any active bleeding or acute trauma? -: No 12: Does the patient have intracranial neoplasm, arteriovenous malformation or aneurysm? -: No 13: Does the patient have abnormal glucose (less than 50 or greater than 400mg/dl)? Record glucose in Comment. -: No 14: Patient has rapidly improving symptoms at the time Alteplase is to be Administered. -: Yes 15: Does the patient have any risks for bleeding, including but not limited to: a.: Current use of Coumadin with PT greater than 15 seconds or INR greater than 1.7. b.: Current use of Pradaxa (Dabigatran). c.: Heparin administereed within the past 48 hours and PTT elevated. d.: Platelet count less than 100,000/mm. e.: Major surgery or serious trauma within 14 days. f.: Gastrointestinal or gynecological urinary bleeding within 14 days. g.: Myocardial Infarction (DC) within 3 months. -: No : If the answer to any of the above questions is "YES" then stop, the patient is not a candidate for Alteplase. : If the answer to all of the above questions is "NO" then the patient may be eligible for the Administration of Alteplase. : If the patient is noted to have seizure activity at onset of Stroke symptoms; Consult Neurologist for further evaluation. - The patient is: -: Included and is eligible to receive Alteplase. *Initiate bed placement at higher level of care* --: No Reviewed risks & benefits of thrombolytic therapy: I have reviewed the risks and benefits of thrombolytic therapy with the patient and/or his/her family. Yes -: Excluded and not eligible to receive Alteplase for the above exclusions. --: Yes -: Excluded and not eligible to receive Alteplase for other reasons (specify in comments): - Diagnosis of TIA: -: Patient presented with transient symptoms that are now resolved and no other neurologic findings are currently present. List symptoms in comments. -: Yes -: Patient is NOT a candidate for tPA. -: Yes -: ____(put name in comment) has been consulted for admission and continued evaluation of risk factor assessment. Comment: Dr. Navas
[2020-01-03 12:16] LABS: URINE AMPHETAMINES SCREEN NEGATIVE; URINE BARBITURATES SCREEN NEGATIVE; URINE BENZODIAZEPINES SCREEN NEGATIVE; URINE COCAINE SCREEN NEGATIVE; URINE METHADONE SCREEN NEGATIVE; URINE PHENCYCLIDINE SCREEN NEGATIVE
[2020-01-03 12:17] LABS: URINE MARIJUANA (THC) SCREEN UNCONFIRMED POSITIVE
[2020-01-03 13:24] VITALS: BP 132/70
== END 2020-01-03 13:27 | disposition home or self-care (01) ==
LOC: ER 08:58
DX: G45.9 Transient cerebral ischemic attack, unspecified (principal); R41.0 Disorientation, unspecified; R47.01 Aphasia; F17.210 Nicotine dependence, cigarettes, uncomplicated
CPT/HCPCS: 36415; 70450; 71045; 80053; 80307; 81001; 82550; 84484; 85025; 93005; 93010; 99285